=== PATIENT | female | born 1945 | race Caucasian/White ===

== ENCOUNTER 2018-03-17 08:57 | Outpatient (CLI) | payer MEDICARE, BC | END 2018-03-17 08:58 | disposition home or self-care (01) | LOC: BICMAMMO 08:57 | PROVIDERS: ATTEND Obstetrics & Gynecology | DX: Z12.31 Encounter for screening mammogram for malignant neoplasm of breast (principal); N63.10 Unspecified lump in the right breast, unspecified quadrant | CPT/HCPCS: 77063; 77067 ==

== ENCOUNTER 2018-03-29 09:40 | Outpatient (CLI) | payer MEDICARE, BC ==
--- NOTE | 2018-03-29 11:29 | ULT ---
LIMITED RIGHT BREAST ULTRASOUND: Date: 03-29-18 Provided Clinical History: Abnormal mammograms. FINDINGS: Limited sonographic interrogation of the right breast was performed in the region of mammographic con cern. There is an 8 mm cyst present in region of mammographic concern. No suspicious abnormality is e vident. IMPRESSION: BIRADS category 2 - benign findings. Return to annual screening mammography recommended. POS: OFF
== END 2018-03-29 09:41 | disposition home or self-care (01) ==
LOC: BICMAMMO 09:40
PROVIDERS: ATTEND Obstetrics & Gynecology
DX: N63.10 Unspecified lump in the right breast, unspecified quadrant (principal)
CPT/HCPCS: 76642; 77065; G0279

== ENCOUNTER 2019-03-30 15:02 | Outpatient (CLI) | payer MEDICARE, BC ==
--- NOTE | 2019-03-30 16:02 | MMO ---
Bilateral MAMMO Bilat Screen [facility]. CLINICAL HISTORY: Patient is 73 years old and is seen for screening. The patient has the following family history of breast cancer: aunt, at age 73. The patient has no personal history of cancer. VIEWS: The views performed were: bilateral craniocaudal with tomosynthesis and bilateral mediolateral oblique with tomosynthesis. FILMS COMPARED: The present examination has been compared to prior imaging studies performed at [facility] on 03/02/2016, 03/15/2017, 03/17/2018 and 03/29/2018. This study has been interpreted with the assistance of computer-aided detection. MAMMOGRAM FINDINGS: There are scattered fibroglandular densities. There are no suspicious masses, suspicious calcifications, or new areas of architectural distortion. IMPRESSION: THERE IS NO MAMMOGRAPHIC EVIDENCE OF MALIGNANCY. A ROUTINE FOLLOW-UP MAMMOGRAM IN 1 YEAR IS RECOMMENDED. THE RESULTS OF THIS EXAM WERE SENT TO THE PATIENT. ACR BI-RADS Category 1 - Negative MAMMOGRAPHY NOTE: 1. A negative mammogram report should not delay a biopsy if a dominant of clinically suspicious mass is present. 2. Approximately 10% to 15% of breast cancers are not detected by mammography. 3. Adenosis and dense breasts may obscure an underlying neoplasm. Reported by: Bella GAN Electonically Signed: [id number]
== END 2019-03-30 15:03 | disposition home or self-care (01) ==
LOC: BICMAMMO 15:02
PROVIDERS: ATTEND Obstetrics & Gynecology
DX: Z12.31 Encounter for screening mammogram for malignant neoplasm of breast (principal); Z80.3 Family history of malignant neoplasm of breast
CPT/HCPCS: 77063; 77067

== ENCOUNTER 2020-04-04 14:13 | Outpatient (CLI) | payer MEDICARE, BC ==
--- NOTE | 2020-04-04 15:53 | MMO ---
Bilateral MAMMO Bilat Screen [facility]. CLINICAL HISTORY: Patient is 74 years old and is seen for screening. The patient has the following family history of breast cancer: aunt, at age 73. The patient has no personal history of cancer. VIEWS: The views performed were: bilateral craniocaudal with tomosynthesis and bilateral mediolateral oblique with tomosynthesis. FILMS COMPARED: The present examination has been compared to prior imaging studies performed at [facility] [place] on 03/15/2017, 03/17/2018, 03/29/2018 and 03/30/2019. This study has been interpreted with the assistance of computer-aided detection. MAMMOGRAM FINDINGS: There are scattered fibroglandular densities. Benign calcifications are noted bilaterally. Nodularity is stable. There are no suspicious masses, suspicious calcifications, or new areas of architectural distortion. IMPRESSION: THERE IS NO MAMMOGRAPHIC EVIDENCE OF MALIGNANCY. A ROUTINE FOLLOW-UP MAMMOGRAM IN 1 YEAR IS RECOMMENDED. THE RESULTS OF THIS EXAM WERE SENT TO THE PATIENT. ACR BI-RADS Category 2 - Benign finding MAMMOGRAPHY NOTE: 1. A negative mammogram report should not delay a biopsy if a dominant of clinically suspicious mass is present. 2. Approximately 10% to 15% of breast cancers are not detected by mammography. 3. Adenosis and dense breasts may obscure an underlying neoplasm. Reported by: TITA BERG MD Electonically Signed: [id number]
== END 2020-04-04 14:14 | disposition home or self-care (01) ==
LOC: BICMAMMO 14:13
PROVIDERS: ATTEND Obstetrics & Gynecology
DX: Z12.31 Encounter for screening mammogram for malignant neoplasm of breast (principal); Z80.3 Family history of malignant neoplasm of breast
CPT/HCPCS: 77063; 77067

== ENCOUNTER 2020-04-15 12:36 | Outpatient (CLI) | payer MEDICARE, BC ==
--- NOTE | 2020-04-15 12:56 | RAD ---
EXAM: Chest PA and lateral: HISTORY: Cough COMPARISON: 2017 FINDINGS: Lung thacker are clear. Vascular markings are normal. Heart and mediastinum appear unremarkable. Osseous structures are unremarkable. IMPRESSION: Unremarkable chest
== END 2020-04-15 12:37 | disposition home or self-care (01) ==
LOC: BICRAD 12:36
PROVIDERS: ATTEND Family Medicine
DX: R05 Cough (principal)
CPT/HCPCS: 71046

== ENCOUNTER 2020-08-06 08:40 | Outpatient (CLI) | payer MEDICARE, BC | END 2020-08-06 08:41 | disposition home or self-care (01) | LOC: BICRAD 08:40 | PROVIDERS: ATTEND Family Medicine | DX: J18.9 Pneumonia, unspecified organism (principal) | CPT/HCPCS: 71046 ==

== ENCOUNTER 2021-04-21 15:06 | Outpatient (CLI) | payer MEDICARE, BC | END 2021-04-21 15:07 | disposition home or self-care (01) | LOC: BICMAMMO 15:06 | PROVIDERS: ATTEND Family Medicine | DX: Z12.31 Encounter for screening mammogram for malignant neoplasm of breast (principal); Z80.3 Family history of malignant neoplasm of breast | CPT/HCPCS: 77063; 77067 ==

== ENCOUNTER 2021-09-17 08:17 | Inpatient (IN) | payer MEDICARE, BC ==
[2021-09-17] MEDS ORDERED: Benzonatate 100 MG CAP PO PRN (10:51)
[2021-09-17] MEDS ORDERED: Ondansetron PF 4 MG/2 ML Vial IVP PRN (18:02)
[2021-09-17] MEDS ORDERED: Guaifenesin DM 100-10/5 ML UDCUP PO PRN (18:02)
[2021-09-17] MEDS: Sodium Chloride 0.9% 1,000 ML IV SCH (18:28)
[2021-09-17] MEDS ORDERED: HumaLOG 300 UNITS/3 ML VIAL SC PRN ×2 (19:00)
[2021-09-17] MEDS ORDERED: Dextrose 50% Abboject 50 ML SYRINGE SLOW IVP PRN (19:00)
[2021-09-17] MEDS ORDERED: Dextrose 5% in Water 1,000 ML IV PRN (19:00)
[2021-09-17] MEDS ORDERED: Azithromycin 500 MG in Sodium Chloride 0.9% 250 ML 250 ML IVPB SCH (20:00)
[2021-09-17] MEDS ORDERED: hydrALAZINE 20 MG/ML VIAL SLOW IVP PRN (20:13)
[2021-09-17 20:50] LABS: Troponin I 0.021 ng/mL (< 0.028)
[2021-09-17] MEDS ORDERED: Pantoprazole 40 MG VIAL IVP SCH (21:00)
[2021-09-17] MEDS ORDERED: Oseltamivir 75 MG CAP PO SCH (21:00)
[2021-09-17] MEDS: Heparin 5,000 UNITS/ML VIAL SC SCH (21:09)
[2021-09-17] MEDS: Atorvastatin Calcium 10 MG TAB PO SCH (21:12)
[2021-09-18] MEDS: Acetaminophen 325 MG TAB PO PRN ×2 (03:57→21:12)
[2021-09-18 06:50] LABS: #Monocytes 0.4 thou/uL (0.11-0.59); #Neutrophils 4.5 thou/uL (1.40-6.50); %Basophils 0.5 % (0.0-1.0); %Lymphocytes 16.2 % (21.0-51.0); %Monocytes 6.8 % (0.0-10.0); %Neutrophils 76.5 % (42.0-75.0); Mean Corpuscular HGB CONC 34.2 g/dL (32.0-36.0); Mean Corpuscular Hemoglobin 31.4 pg (27.0-31.0); Mean Corpuscular Volume 91.9 fL (78.0-98.0); Mean Platelet Volume 7.2 fL (7.4-10.4); Platelet Count 137 thou/uL (130-400); RBC Distribution Width 11.9 % (11.5-14.5); Red Blood Cell (RBC) Count 3.51 mill/uL (4.20-5.40); White Blood Cell (WBC) Count 5.9 thou/uL (4.8-10.8)
[2021-09-18 06:59] LABS: Anion Gap 12 mmol/L (10-20); BUN (Urea Nitrogen) 14 mg/dL (9.8-20.1); Calc. Creatinine Clearance 56 mL/min (70-130); Calcium 8.3 mg/dL (7.8-10.44); Carbon Dioxide 21 mmol/L (23-31); Chloride 108 mmol/L (98-107); Glucose 121 mg/dL (83-110); Potassium 3.4 mmol/L (3.5-5.1); Sodium 138 mmol/L (136-145)
[2021-09-18] MEDS ORDERED: cefTRIAXone\\ROCEPHIN 1 GM in Sodium Chloride 0.9% 100 ML IVPB SCH (08:00)
[2021-09-18] MEDS: Aspirin 81 mg Enteric Coated Tablet PO SCH (08:54)
[2021-09-18] MEDS: Heparin 5,000 UNITS/ML VIAL SC SCH ×2 (08:55→21:20)
[2021-09-18] MEDS: Amlodipine 5 MG TAB PO SCH (08:55)
[2021-09-18] MEDS: Oseltamivir 6 MG/ML ORAL SUSP PO SCH ×2 (08:56→21:12)
[2021-09-18] MEDS: Sodium Chloride 0.9% 1,000 ML IV SCH (08:56)
[2021-09-18 13:12] VITALS: BMI 21.6
[2021-09-18] MEDS: Cefdinir 300 MG CAP PO SCH (21:11)
[2021-09-18] MEDS: Atorvastatin Calcium 10 MG TAB PO SCH (21:11)
[2021-09-19] MEDS: Acetaminophen 325 MG TAB PO PRN (04:32)
[2021-09-19] MEDS: Heparin 5,000 UNITS/ML VIAL SC SCH (08:29)
[2021-09-19] MEDS: Cefdinir 300 MG CAP PO SCH (08:29)
[2021-09-19] MEDS: Amlodipine 5 MG TAB PO SCH (08:29)
[2021-09-19] MEDS: Aspirin 81 mg Enteric Coated Tablet PO SCH (08:29)
[2021-09-19 08:39] VITALS: BP 130/71; TEMP 98
[2021-09-19] MEDS: Oseltamivir 6 MG/ML ORAL SUSP PO SCH (10:19)
== END 2021-09-19 12:17 | disposition home or self-care (01) | DRG 193 ==
LOC: T4-B 08:17
PROVIDERS: ADMIT Internal Medicine; ATTEND Internal Medicine
DX: J10.08 Influenza due to other identified influenza virus with other specified pneumonia (principal); J96.01 Acute respiratory failure with hypoxia; N17.9 Acute kidney failure, unspecified; I10 Essential (primary) hypertension; R77.8 Other specified abnormalities of plasma proteins; J15.9 Unspecified bacterial pneumonia; E78.5 Hyperlipidemia, unspecified; E11.9 Type 2 diabetes mellitus without complications; Z90.49 Acquired absence of other specified parts of digestive tract; Z79.82 Long term (current) use of aspirin
CPT/HCPCS: 36415; 36416; 80048; 85025; 94640; C9113; J0456; J0696; J1644; J3490; J7050; J7620

== ENCOUNTER 2021-10-15 09:49 | Outpatient (CLI) | payer MEDICARE, BC | END 2021-10-15 09:50 | disposition home or self-care (01) | LOC: BICRAD 09:49 | PROVIDERS: ATTEND Family Medicine | DX: J18.9 Pneumonia, unspecified organism (principal) | CPT/HCPCS: 71046 ==

== ENCOUNTER 2022-04-22 09:22 | Outpatient (CLI) | payer MEDICARE, BC | END 2022-04-22 09:23 | disposition home or self-care (01) | LOC: BICMAMMO 09:22 | PROVIDERS: ATTEND Family Medicine | DX: Z12.31 Encounter for screening mammogram for malignant neoplasm of breast (principal); Z80.3 Family history of malignant neoplasm of breast | CPT/HCPCS: 77063; 77067 ==

== ENCOUNTER 2022-11-26 08:41 | Emergency (ER) | payer MEDICARE, BC ==
[2022-11-26 09:15] LABS: Bilirubin Negative (Negative); Blood, Urine Large (Negative); Glucose, Urine (Dipstick) Negative (Negative); Ketone, Urine Negative (Negative); Leukocyte Large (Negative); Nitrite Negative (Negative); Protein, Urine (Dipstick) 30 mg/dL (Neg-Trace); Urobilinogen 0.2 mg/dL (Less than 2)
[2022-11-26 09:17] LABS: Clarity Cloudy (Clear)
[2022-11-26 09:22] LABS: Bacteria/HPF 2+ HPF (None Seen); CAUTI Indications for Culture Dysuria,urgency,freq; WBC/HPF Greater than 50 HPF (0-3)
[2022-11-26 09:23] LABS: Urine Culture Reflex Yes Yes
[2022-11-26 09:25] LABS: #Eosinphils 0.1 thou/uL (0.0-0.7); #Monocytes 0.7 thou/uL (0.11-0.59); #Neutrophils 4.1 thou/uL (1.40-6.50); %Basophils 0.3 % (0.0-1.0); %Eosinophils 0.8 % (0.0-10.0); %Lymphocytes 18.6 % (21.0-51.0); %Neutrophils 69.1 % (42.0-75.0); Hemoglobin 12.9 g/dL (12.0-16.0); Mean Corpuscular HGB CONC 33.2 g/dL (32.0-36.0); Mean Corpuscular Volume 87.4 fl (78.0-98.0); Mean Platelet Volume 9.2 fL (7.4-10.4); Platelet Count 224 10x3/uL (130-400); RBC Distribution Width 12.7 % (11.5-14.5); Red Blood Cell (RBC) Count 4.45 mill/uL (4.20-5.40); White Blood Cell (WBC) Count 5.9 10x3/uL (4.8-10.8)
[2022-11-26 09:40] LABS: INR-International Normal Ratio 1.1; PTT 30.2 sec (22.9-36.1); Prothrombin Time 14.5 sec (12.0-14.7)
[2022-11-26 09:48] LABS: ALT (SGPT) 10 U/L (8-55); AST (SGOT) 17 U/L (5-34); Albumin 4.2 g/dL (3.4-4.8); Alkaline Phosphatase 94 U/L (40-110); Anion Gap 12 mmol/L (10-20); BUN (Urea Nitrogen) 17 mg/dL (9.8-20.1); Bilirubin, Total 0.6 mg/dL (0.2-1.2); Calc. Creatinine Clearance 0 mL/min (70-130); Calcium 9.5 mg/dL (7.8-10.44); Carbon Dioxide 25 mmol/L (23-31); Chloride 108 mmol/L (98-107); Estimated GFR 59; Globulin 2.9 g/dL (2.4-3.5); Glucose 123 mg/dL (83-110); Potassium 4.2 mmol/L (3.5-5.1); Protein, Total 7.1 g/dL (5.8-8.1); Sodium 141 mmol/L (136-145)
[2022-11-26] MEDS ORDERED: Sodium Chloride 0.9% 100 ML ONE (09:50)
[2022-11-26] MEDS ORDERED: cefTRIAXone (ROCEPHIN) 2 GM VIAL ONE (09:50)
== END 2022-11-26 11:38 | disposition home or self-care (01) ==
LOC: ERS 08:41
DX: N13.2 Hydronephrosis with renal and ureteral calculous obstruction (principal); N39.0 Urinary tract infection, site not specified; E78.00 Pure hypercholesterolemia, unspecified; K21.9 Gastro-esophageal reflux disease without esophagitis; I10 Essential (primary) hypertension; Z79.82 Long term (current) use of aspirin
CPT/HCPCS: 36415; 74177; 80053; 81001; 83605; 85025; 85610; 85730; 87040; 87086; 94760; 96361; 96365; J0696; J3490